=== PATIENT | male | born 1955 | race Caucasian/White ===

== ENCOUNTER 2017-06-16 06:26 | Day surgery (SDC) | END 2017-06-16 14:33 | disposition home or self-care (01) ==

== ENCOUNTER 2018-09-23 11:51 | Day surgery (SDC) | payer OTHER ==
[~2018-09-23] VITALS: Ht 165.1 cm; Wt 72.4 kg
[~2018-09-23 11:51] MED LIST: ASPI81TA52 PO; ATOR40TA68 PO; FURO40TA4 PO; LISI-313 PO; OMEP20CA16 PO; WARF2TAB PO
[2018-09-23] MEDS ORDERED: ELIQUIS (12:48)
[2018-09-23 12:50] VITALS: Ht 165.1 cm; Wt 72.4 kg
[2018-09-23 13:00] VITALS: BP 128/83; PULSE 88; RESP 18
--- NOTE | 2018-09-23 13:11 | PREAC ---
Date/Time of Note Date/Time of Note DATE: 09/23/18 TIME: 13:09 Anesthesia Eval and Record Evaluation Time Pre-Procedure Interview DATE: 09/23/18 TIME: 13:09 Age 62 Sex male NPO: 8 hrs Preoperative diagnosis screeing Planned procedure colonoscopy Past Medical History Past Medical History: Includes Cardio: HTN, Dyslipidemia, CABG (valve replacement) Surgery & Anesthesia Issues No known issue Meds Anticoagulation: Yes (stopped yesterday) Beta Cherelle within 24 hr: No Reason Beta Cherelle not given: Pt. not on B-Cherelle Reported Medications [Eliquis] No Conflict Check 09/23/18 Furosemide* (Furosemide*) 40 Mg Tablet, 40 MG PO DAILY, TAB 06/16/17 Atorvastatin* (Atorvastatin*) 40 Mg Tablet, 20 MG PO QHS, #30 TAB 06/16/17 Omeprazole* (Omeprazole*) 20 Mg Capsule.dr, 20 MG PO TID, #60 CAP 06/16/17 Lisinopril* (Lisinopril*) 5 Mg Tablet, 5 MG PO DAILY, #30 TAB 06/16/17 Aspirin (Low Dose Aspirin) 81 Mg Tablet.dr, 81 MG PO DAILY, #30 TAB 06/16/17 Discontinued Reported Medications Warfarin Sodium* (Coumadin*) 2 Mg Tablet, 2 MG PO DAILY, TAB 06/16/17 Meds reviewed: Yes Allergies Coded Allergies: No Known Allergy (Unverified , 06/16/17) Allergies Reviewed: Yes Labs/Studies Labs Reviewed: Reviewed by anesthesiologist test: N/A Studies: ECG (n/a), CXR (n/a) Pre-procedure Exam Airway: Adequate mouth opening Mallampati: Mallampati I Teeth: Normal Lung: Normal Heart: Normal ASA Physical Status ASA physical status: 2 Emergency: None Planned Anesthetic General/MAC: MAC Planned Pain Management Parenteral pain med Pre-operative Attestations Prior to commencing anesthesia and surgery, the patient was re-evaluated, there was verification of: *The patient's identity *The results of appropriate recent lab work and preoperative vital signs *The above evaluation not changing prior to induction *Anesthetic plan, risk benefits, alternative and complications discussed with patient/family; questions answered; patient/family understands, accepts and wishes to proceed. CLIFTON JEAN MD Sep 23, 2018 13:11
[2018-09-23] MEDS ORDERED: FENTAnyl 50 MCG/ML VIAL ONE (13:12)
[2018-09-23] MEDS ORDERED: PROPOFOL 20 ML ONE (13:12)
[2018-09-23] MEDS ORDERED: FENTAnyl 50 MCG/ML VIAL IV PRN ×3 (13:30)
[2018-09-23] MEDS ORDERED: ONDANSETRON 4 MG INJ IV PRN (13:30)
--- NOTE | 2018-09-23 13:43 | HPN ---
Date/Time of Note Date/Time of Note DATE: 09/23/18 TIME: 13:43 Interval H&P Admission Note Pt. seen H&P reviewed: No system changes MANDY FRIAS Sep 23, 2018 13:43
--- NOTE | 2018-09-26 07:32 | PAC ---
Date/Time of Note Date/Time of Note DATE: 09/24/18 TIME: 07:32 Post-Anesthesia Notes Post-Anesthesia Note Last documented vital signs Vital Signs Date Temp Pulse Resp B/P (MAP) Pulse Ox O2 O2 Flow FiO2 Time Delivery Rate 09/23/18 98.0 88 18 128/83 96 Room Air 13:00 (98) Activity: WNL Respiratory function: WNL Cardiovascular function: WNL Mental status: Baseline Pain reasonably controlled: Yes Hydration appropriate: Yes Nausea/Vomiting absent: No CLIFTON JEAN MD Sep 26, 2018 07:32
== END 2018-09-23 15:20 | disposition home or self-care (01) ==
LOC: GIL 11:51
PROVIDERS: ATTEND Internal Medicine Gastroenterology
DX: Z12.11 Encounter for screening for malignant neoplasm of colon (principal); K64.8 Other hemorrhoids; D12.2 Benign neoplasm of ascending colon; D12.0 Benign neoplasm of cecum
CPT/HCPCS: 45380; 88305; J3010; Z7610